=== PATIENT | female | born 1990 | race Caucasian/White ===

== ENCOUNTER 2021-12-13 18:51 | Emergency (ER) | payer BC, SELFPAY ==
--- NOTE | ~2021-12-13 | CT_ITS ---
EXAMINATION: CT HEAD WITHOUT CONTRAST (STROKE PROTOCOL) CLINICAL INFORMATION: Altered mental status. COMPARISON: None. TECHNIQUE: Contiguous axial imaging was performed from the skull base to vertex without intravenous administration of contrast. This CT examination was performed using dose optimization techniques as appropriate, variously including the following: *Automated exposure control *Adjustment of mA and/or kV according to patient size (this includes techniques or standardized protocols for targeted exams where dose is matched to indication/reason for exam; i.e. extremities or head) *Use of iterative reconstruction technique DLP: 744 mGy-cm FINDINGS: Examination is very limited due to motion. There is a 2.9 x 2.5 cm lesion in the right parieto-occipital lobe with areas of high attenuation, suggesting blood products. There is perilesional edema with regional sulci effacement. No midline shift. No obstructive hydrocephalus. Evaluation of calvarial fractures is essentially nondiagnostic due to motion. The paranasal sinuses, mastoids and middle ear cavities appear clear. CT/CT head for stroke IMPRESSION: Very limited examination due to motion. There is a 2.9 cm masslike observation in the right parieto-occipital lobe with areas of high attenuation suggesting blood products. Recommend further characterization with an MR of the brain. No evidence of midline shift nor obstructive hydrocephalus. This critical result was discussed with Sharmila GRISSOM at 12/13/2021 7:24 PM and it was ascertained that the content and urgency of the report was understood at the time of direct communication.
--- NOTE | ~2021-12-13 | XR_ITS ---
EXAMINATION: XR CHEST CLINICAL INFORMATION: Tube placement. COMPARISON: None TECHNIQUE: Frontal view of the chest was obtained. FINDINGS: Normal cardiomediastinal silhouette. No focal airspace opacity, pleural effusion or pneumothorax. No acute osseous abnormalities. EKG wires overlie the chest. A nonspecific large bore tubing projects from the left neck into the right hemithorax and courses into the abdomen terminating outside of the field of view. XR/XR chest 1V IMPRESSION: 1. No acute cardiopulmonary findings. 2. Aside from EKG wires and a nonspecific large bore tubing projecting over the right hemithorax, no endotracheal tube or CVC lines are identified.
[2021-12-13] MEDS: Midazolam HCl/PF 2 MG/2 ML VIAL IVPUSH ×2 (18:55→19:05)
[2021-12-13 18:58] VITALS: BP 128/72; PULSE 89; O2SAT 99
[2021-12-13 19:10] LABS: MANUAL DIFF FLAG NO
[2021-12-13] MEDS: Rocuronium Bromide 50 MG/5 ML VIAL IVPUSH (19:27)
[2021-12-13] MEDS: Etomidate 20 MG/10 ML VIAL IVPUSH (19:27)
[2021-12-13] MEDS: dexAMETHasone sod phosphate 10 MG/ML VIAL IVPUSH (19:30)
[2021-12-13] MEDS: 0.9 % Sodium Chloride 1,000 ML 999 ML IV ×2 (19:30→20:36)
[2021-12-13 19:33] VITALS: BP 127/79; PULSE 96; RESP 16; O2SAT 100
[2021-12-13] MEDS: Midazolam HCl/NS 50 MG/50 ML PLAST..BAG IVCONT (19:33)
[2021-12-13 19:35] VITALS: PULSE 102; O2SAT 100
[2021-12-13] MEDS: fentaNYL citrate/NS 1,000 MCG/100 ML PLAST..BAG 5 MCG IVCONT (19:35)
[2021-12-13 19:38] LABS: Glucose, Whole Blood 144 mg/dL (60-115)
[2021-12-13 19:46] VITALS: O2SAT 100
--- NOTE | 2021-12-13 19:47 | ED.AMS ---
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 Patient then had episode of unresponsiveness EMS states saw her shake and foam at the mouth. On arrival to the ED, she was thrashing, trying to get off stretcher repeatedly screaming she had to throw up. Refusing IV. Unable to get her into CT scan. MD complaint: altered mental status (episode of unresponsive, foaming at the mouth, woke up to sternal rub with EMS, agitated in ambulance bay) Onset (ago): minute(s) (just prior to arrival ) Timing confirmed by: spouse Severity: severe Consistency of symptoms: getting Worse Context: other (only thing new was 2 weeks ago tested + for COVID) Associated symptoms: nausea/vomiting (patient never vomited but repeatedly yelled out she had to leave over and over could not answer questions appropriately and was dry heaving) Treatments prior to arrival: other (EMS notes normal POC blood sugar) Related Data Allergies Allergy/AdvReac Type Severity Reaction Status Date / Time Unable to Assess Allergy Unverified 12/13/21 19:00 Review of Systems Review of Systems: ROS unable to be obtained due to altered mental status PMFSH Past Medical History Source: obtained from family Medical History No pertinent past medical history Social History Social History (Updated 12/13/21 @ 19:48 by Lucero Roche DO) Patient Tobacco Use Status: Never used Tobacco Use of substances other than those prescribed or required for medical reasons: No Advance Directives: No Advance Directives Information Provided: No Patient : No Physical Exam ED Vital Signs: Vital Signs - 24 hr 12/13/21 19:33 12/13/21 19:35 12/13/21 19:49 Temperature 97.6 F Pulse Rate 96 102 H 101 H Respiratory Rate 16 16 Blood Pressure 127/79 136/94 H Pulse Oximetry 100 100 100 Oxygen Delivery Method Room Air BMI result Body Mass Index 20.9 Appearance: Agitated, thrashing out trying to leave, high pitched screaming, cannot answer questions not following commmands, dry heaving. severe acute distress. Eyes: Pupils equal, round and reactive to light. Dilated 5mm ENT: Pharynx dry MM Neck: Normal inspection. Neck supple. CVS: tachycardic heart rate and rhythm. Pulses normal. Respiratory: No respiratory distress. Breath sounds normal. Abdomen: Soft and nontender. Skin: Skin warm and dry. pale skin color. Extremities: No lower extremity edema. Neuro: confused, acting erratically yelling at staff, withdrawing from IV, trying to get up from stretcher will not lay down for CT scan Course Course Course Narrative: [facility] notified after CT scan - accepted by Dr. Funes given edema IV dexamethasone ordered, no shift ordered, head of bed requested to be elevated no ALS ambulances available, Life flight to get patient for [facility] transfer. notified that there is a lab error per battery charger tester with mislabel - notified at 810pm 1 gram of keppra ordered prior to transport BP 150/100 given bolus of propofol BP 116/80 HR went to 50s after bolus MDM - Altered Mental Status MDM Narrative Medical decision making narrative: 31 yo female with no sig PMH was driving to job interview and had episode of erratic behavior, unresponsive with some shaking movements - she is now very agitated and acting almost manic and erratic. She cannot follow commands. I cannot get testing done particularly head CT for ICH given abrupt change in mentation and behaviors. IV versed 4mg ordered for CT scan on arrival - CT scan shows mass with ICH. Given her presentation and now patient will not allow IV draws, further testing, BP testing, she is still very agitated with any stimuli and did not respond to versed 4mg. I am going to intubate the patient for transport as I do not think she will be safe for life flight at this time. Lab Data Result diagrams: 12/13/21 19:05 12/13/21 19:05 Labs: Lab Results 12/13/21 12/13/21 12/13/21 Range/Units 19:05 19:05 19:05 WBC TNP RBC TNP Hgb TNP Hct TNP MCV TNP MCH TNP MCHC TNP RDW TNP Plt Count TNP MPV TNP Immature Gran % (Auto) TNP Neut % (Auto) TNP Lymph % (Auto) TNP [place] % (Auto) TNP Eos % (Auto) TNP Baso % (Auto) TNP Lymph # (Auto) TNP [place] # (Auto) TNP Eos # (Auto) TNP Baso # (Auto) TNP Abs Immat Gran (auto) TNP Absolute Neuts (auto) TNP Absolute Nucleated RBC TNP Nucleated RBC % (auto) TNP PT TNP Whole Blood PT (11.1-13.5) sec INR TNP Whole Blood INR (0.9-1.1) O2 Saturation % ABG pH at Pt Temp (7.35-7.45) ABG pCO2 at Pt Temp (32-45) mmHg ABG pO2 at Pt Temp (83-108) mmHg ABG HCO3 (22-26) mmol/L ABG Base Excess (Actual) mmol/L Sodium TNP Potassium TNP Chloride TNP Carbon Dioxide TNP Anion Gap TNP BUN TNP Creatinine TNP Estim Creat Clear Calc TNP Estimated GFR TNP POC Glucose (60-115) mg/dL Random Glucose TNP Lactic Acid Calcium TNP Magnesium TNP Total Bilirubin TNP AST TNP ALT TNP Alkaline Phosphatase TNP Total Protein TNP Albumin TNP Beta HCG, Quant TNP COVID-19 (JAYASHREE) COVID-19 Clin Com 12/13/21 12/13/21 12/13/21 Range/Units 19:05 19:25 19:31 WBC RBC Hgb Hct MCV MCH MCHC RDW Plt Count MPV Immature Gran % (Auto) Neut % (Auto) Lymph % (Auto) [place] % (Auto) Eos % (Auto) Baso % (Auto) Lymph # (Auto) [place] # (Auto) Eos # (Auto) Baso # (Auto) Abs Immat Gran (auto) Absolute Neuts (auto) Absolute Nucleated RBC Nucleated RBC % (auto) PT Whole Blood PT (11.1-13.5) sec INR Whole Blood INR (0.9-1.1) O2 Saturation % ABG pH at Pt Temp (7.35-7.45) ABG pCO2 at Pt Temp (32-45) mmHg ABG pO2 at Pt Temp (83-108) mmHg ABG HCO3 (22-26) mmol/L ABG Base Excess (Actual) mmol/L Sodium Potassium Chloride Carbon Dioxide Anion Gap BUN Creatinine Estim Creat Clear Calc Estimated GFR POC Glucose 144 H (60-115) mg/dL Random Glucose Lactic Acid TNP Calcium Magnesium Total Bilirubin AST ALT Alkaline Phosphatase Total Protein Albumin Beta HCG, Quant Cancelled COVID-19 (JAYASHREE) COVID-19 [employer] 12/13/21 12/13/21 12/13/21 Range/Units 19:31 19:42 19:51 WBC RBC Hgb Hct MCV MCH MCHC RDW Plt Count MPV Immature Gran % (Auto) Neut % (Auto) Lymph % (Auto) [place] % (Auto) Eos % (Auto) Baso % (Auto) Lymph # (Auto) [place] # (Auto) Eos # (Auto) Baso # (Auto) Abs Immat Gran (auto) Absolute Neuts (auto) Absolute Nucleated RBC Nucleated RBC % (auto) PT Whole Blood PT 11.7 (11.1-13.5) sec INR Whole Blood INR 1.0 (0.9-1.1) O2 Saturation < 30.0 % ABG pH at Pt Temp 7.21 L (7.35-7.45) ABG pCO2 at Pt Temp 27 L (32-45) mmHg ABG pO2 at Pt Temp 26 L* (83-108) mmHg ABG HCO3 11 L (22-26) mmol/L ABG Base Excess (Actual) -15.0 mmol/L Sodium Potassium Chloride Carbon Dioxide Anion Gap BUN Creatinine Estim Creat Clear Calc Estimated GFR POC Glucose (60-115) mg/dL Random Glucose Lactic Acid Calcium Magnesium Total Bilirubin AST ALT Alkaline Phosphatase Total Protein Albumin Beta HCG, Quant COVID-19 (JAYASHREE) TNP COVID-19 Clin Com See Note 12/13/21 12/13/21 Range/Units 20:15 20:22 WBC RBC Hgb Hct MCV MCH MCHC RDW Plt Count MPV Immature Gran % (Auto) Neut % (Auto) Lymph % (Auto) [place] % (Auto) Eos % (Auto) Baso % (Auto) Lymph # (Auto) [place] # (Auto) Eos # (Auto) Baso # (Auto) Abs Immat Gran (auto) Absolute Neuts (auto) Absolute Nucleated RBC Nucleated RBC % (auto) PT Whole Blood PT (11.1-13.5) sec INR Whole Blood INR (0.9-1.1) O2 Saturation 100.0 % ABG pH at Pt Temp 7.41 (7.35-7.45) ABG pCO2 at Pt Temp 24 L (32-45) mmHg ABG pO2 at Pt Temp 229 H (83-108) mmHg ABG HCO3 16 L (22-26) mmol/L ABG Base Excess (Actual) -6.8 mmol/L Sodium Potassium Chloride Carbon Dioxide Anion Gap BUN Creatinine Estim Creat Clear Calc Estimated GFR POC Glucose (60-115) mg/dL Random Glucose Lactic Acid Calcium Magnesium Total Bilirubin AST ALT Alkaline Phosphatase Total Protein Albumin Beta HCG, Quant COVID-19 (JAYASHREE) Positive A COVID-19 Clin Com See Note ECG Data ECG #1: Attestation: I personally reviewed and interpreted this ECG as follows: ECG interpretation date: 12/13/21 ECG interpretation time: 19:59 Interpretation: Rate: 108 Rhythm: sinus tachycardia [place]: normal Normal P waves. Normal JENNIFER. Normal QRS complex. ST T wave : nonspecific inf changes no MABEL qTC: normal prior studies: none no acute ischemia The study has been interpreted contemporaneously by me. . Procedures Intubation Time out performed: Yes sedative: Etomidate Mg Given: 20 paralytic: Rocuronium Mg Given: 50 Laryngoscope: other (glidescope 4 blade) ET Tube Size: 7 ET Tube Uncuffed: Yes Tube Secured Depth (cm): 21 Tube Secured Location: teeth Tube Placement Confirmation: visualized tube passing through cords, equal breath sounds bilaterally, no breath sounds over epigastrium and confirmation by capnometry Patient Tolerated Procedure: well and no complications Intubation Complications: none Additional Comments: prior to CXR tube found to be 18cm at teeth - repositioned by RT and clamped, likely moved during rotation, no leak on vent, sats remained 100% the entire time, normal tidal volume on vent, bilateral lung sounds Critical Care Time Critical Care Time Critical Care Time: Yes Total Critical Care Time: 60 Attestation: bedside assessments, family discussion, transfer to tertiary center I attest to this time spent taking care of the patient Discharge Plan Discharge Clinical Impression: Acute alteration in mental status, Intraparenchymal hemorrhage of brain, Brain mass Patient Disposition: Xfer Acute [facility] Transfer Details: [facility]
[2021-12-13 19:49] VITALS: BP 136/94; PULSE 101; RESP 16; TEMP 36.4; O2SAT 100; BMI 20.9
--- NOTE | 2021-12-13 19:49 | ECG_ITS ---
Test Reason : STROKE Blood Pressure : / mmHG Vent. Rate : 108 BPM Atrial Rate : 108 BPM P-R Int : 146 ms QRS Dur : 086 ms QT Int : 354 ms P-R-T Axes : 069 081 -55 degrees QTc Int : [address] & T wave abnormality, consider inferior ischemia Abnormal ECG No previous ECGs available Referred By: Lucero Roche Electronically Signed By:Jose Angel Canas
--- NOTE | 2021-12-13 19:52 | PC.NURSE ---
report called in to [facility] transfer spoke with nurse MD jason accepting is [facility] Funes
[2021-12-13 19:53] LABS: IDNOW Serial# 16C4AD1C
[2021-12-13 19:58] LABS: ABG HCO3 11 mmol/L (22-26); ABG O2 % Saturation < 30.0 %; ABG pCO2 27 mmHg (32-45); ABG pH 7.21 (7.35-7.45); ABG pO2 26 mmHg (83-108)
[2021-12-13 20:02] LABS: ABG Refer to POC result
[2021-12-13 20:07] LABS: Prothrombin Time Whole Bld POC 11.7 sec (11.1-13.5)
[2021-12-13 20:11] VITALS: O2SAT 100
[2021-12-13] MEDS: levETIRAcetam in NaCl (iso-os) 1,000 MG/100 ML PIGGYBACK 400 MG IV (20:23)
[2021-12-13 20:34] LABS: COVID-19 Test Positive (Negative)
[2021-12-13 20:34] LABS: ABG Refer to POC result
[2021-12-13 20:35] LABS: ABG Base Excess -6.8 mmol/L; ABG HCO3 16 mmol/L (22-26); ABG pCO2 24 mmHg (32-45); ABG pH 7.41 (7.35-7.45); ABG pO2 229 mmHg (83-108)
--- NOTE | 2021-12-13 20:57 | PC.NURSE ---
driving to [place] for job interview, dizzy, disoriented, not making sense. pt went unresp nonreactive to stimuli. O2 sats low, NRB unresp 7 min, sternal rub and progressivey got better 98% on RA, reported shaking and foaming. ems did not witness shaking. 1st episode . pt had covid last week. pt yelling upon arrival. 185 2mg versed given IV 5 1mg versed given IV 1911 1mg versed given IV 18G IV placed L AC 20G IV placed R AC 1926 20mg etomidate given IV 1926 50mg rocuronium given IV samuels placed on life flight arrival, propofol started at 30 mcg/hr, 50mcg bolus fentanyl, keppra given by life flight RN. 2034 vitals prior to discharge: HR 59, BP 116/80, RR 18, O2 100%
--- NOTE | 2021-12-13 21:30 | PC.NURSE ---
[facility] called [facility] transfer line at 191 per . At 1929 accepted pt to the ICU awaiting a call back with a bed Assignment.[facility] called at 192 they stated they will have no ALS available for transport that pt will need to be life flighted.At 1931 [facility] was called per ,they accepted pt gave an ETA of 20mins. At 1944 [facility] called pt is going to ICU Daily[facility] Bed5. At 2010 [facility] arrived for pt transport,with [facility].
== END 2021-12-14 05:12 | disposition short-term general hospital (02) ==
PROVIDERS: Physician Assistant; Emergency Provider Emergency Medicine
DX: R56.9 Unspecified convulsions (principal); I61.9 Nontraumatic intracerebral hemorrhage, unspecified; G93.9 Disorder of brain, unspecified; R94.31 Abnormal electrocardiogram [ECG] [EKG]; Z86.16 Personal history of COVID-19; Z20.822 Contact with and (suspected) exposure to COVID-19; Z79.899 Other long term (current) drug therapy
CPT/HCPCS: 31500; 36415; 70450; 71045; 80053; 82803; 82947; 83605; 83735; 84702; 85025; 85610; 87040; 87635; 93005; 96365; 96375; 96376; 99285; J1100; J1953; J2250; J3010